=== PATIENT | female | born 1935 | race Caucasian/White ===

== ENCOUNTER 2016-10-12 13:58 | Inpatient (IN) | payer MEDICARE, MEDICAID ==
[~2016-10-12] VITALS: Ht 167.6 cm; Wt 58.6 kg
--- NOTE | 2016-10-30 13:37 | MH ---
cc: JUNIOR HERNANDEZ M.D. DATE OF ADMISSION: 10/31/2016 ADMISSION DIAGNOSIS Osteoarthritis, left hip. HISTORY OF PRESENT ILLNESS This patient is an 81-year-old female who has had long-term care for her left hip arthritis. The patient injured herself when she was gardening in 2014. She has had treatment of her low back and left hip region. The patient developed progressive groin pain. She was seen by an orthopedic surgeon in [place]. The patient had conservative care including oral medications and injections of cortisone. She now presents for total hip replacement arthroplasty. PAST MEDICAL HISTORY, SOCIAL HISTORY, FAMILY HISTORY See attached notes. PHYSICAL EXAMINATION 5 feet 6 inches, 125 pounds, BMI 20.2. HEENT: Normocephalic, atraumatic. Pupils equal, round and reactive to light and accommodation. Extraocular movements intact. NECK: Supple. CHEST: Clear. HEART: Regular rate and rhythm. ABDOMEN: Soft, nontender. Normoactive bowel sounds. MUSCULOSKELETAL: Left hip flexion 80, extension -30, internal rotation 20, external rotation 10, abduction 20, adduction 10. There is severe pain with range of motion. NEUROLOGIC: Within normal limits. IMAGING X-rays reviewed of the pelvis shows evidence of severe degenerative changes. There is significant loss of femoral heading integrity. This is either erosion of bone stock or evidence of avascular necrosis. IMPRESSION 1. Osteoarthritis left hip, severe. 2. Possible avascular necrosis, left hip. PLAN Left total hip replacement arthroplasty, direct anterior exposure. CONSENT There are risks of surgery including infection, bleeding, loss of motion, continued pain, need for further surgery, neurologic and vascular injury. The patient understands these issues and wishes to press on with surgery as outlined above. MD TALIB Pagan/DARIN /1:14 PM /1:25 PM
[2016-10-31] MEDS ORDERED: SODIUM CHLORID 0.9% 500 ML IV PRN (10:15)
[2016-10-31] MEDS ORDERED: CHLORHEXIDINE GLUCONATE 2 % 1 PACK (2 CLOTHS) TOPICAL PRN (10:15)
[2016-10-31] MEDS ORDERED: POVIDONE IODINE 7.5% SCRUB 118 ML BOTTLE TOPICAL SCH (10:15)
[2016-10-31] MEDS ORDERED: ceFAZolin 2 GM PREMIX 50 ML IV SCH (10:15)
[2016-10-31] MEDS ORDERED: METOPROLOL TARTRATE 25 MG TAB PO PRN (10:15)
[2016-10-31] MEDS ORDERED: INSULIN HUMAN REGULAR 1,000 UNITS/10 ML VIAL SQ PRN (10:15)
[2016-10-31] MEDS ORDERED: POVIDONE IODINE 5% (ANTISEPSIS KIT) 4 APPLICATIONS EACH NARE PRN (10:15)
[2016-10-31] MEDS ORDERED: VANCOMYCIN 1000 MG/NS 250 ML (for <70 kg) IV SCH ×2 (10:15)
[2016-10-31] MEDS ORDERED: LACTATED RINGER'S 1000 ML IV PRN (10:15)
[2016-10-31] MEDS ORDERED: TRANEXAMIC ACID INJ 590 MG in SODIUM CHLORIDE 0.9% INJ 100 ML IV SCH (10:30)
[2016-10-31] MEDS ORDERED: EXPAREL PERI-ARTICULAR INJECTION (TOTAL VOL. 60 ML) P-ARTICULR SCH ×2 (10:30)
[2016-10-31] MEDS ORDERED: GENTAMICIN SULFATE 80 MG/2 ML VIAL ONE (10:53)
[2016-10-31] MEDS ORDERED: SODIUM CHLOR 0.9% 250 ML INJ 250 ML ONE (10:58)
[2016-10-31] MEDS ORDERED: ACETAMINOPHEN 1000 MG/100 ML VIAL IV ONE (11:41)
[2016-10-31] MEDS ORDERED: FAMOTIDINE 20 MG/2 ML VIAL ONE (11:42)
[2016-10-31] MEDS ORDERED: PROPOFOL 200 MG/20 ML AMP IV ONE (12:00)
[2016-10-31] MEDS ORDERED: LACTATED RINGER'S 1000 ML INJ 2,000 ML IV ONE (12:00)
[2016-10-31] MEDS ORDERED: PHENYLEPH/NS 1000 MCG/10 ML SYR IV ONE (12:00)
[2016-10-31] MEDS ORDERED: ONDANSETRON HCL 4 MG/2 ML VIAL IV PUSH ONE (12:00)
[2016-10-31] MEDS ORDERED: ePHEDrine/NS 25 MG/5 ML SYR IV ONE (12:00)
[2016-10-31] MEDS: LACTATED RINGER'S 1000 ML INJ 1,000 ML IV SCH ×2 (14:57→21:26)
--- NOTE | 2016-10-31 14:58 | RADRPT ---
EXAM DATE/TIME: 10/31/2016 12:44 [facility] COMPARISON: No previous studies available for comparison. INDICATIONS : Left total hip replacement arthroplasty. MEDICAL HISTORY : None. SURGICAL HISTORY : None. ENCOUNTER: Initial ACUITY: 1 day PAIN SCORE: Non-responsive. LOCATION: Left hip FINDINGS: Patient is status post placement of a left hip prosthesis. There is good position and alignment of th e prosthesis and bony structures. The bony structures are grossly intact. Postsurgical changes are pr esent. CONCLUSION: Good position and alignment on this postoperative examination. Mohsen Linton MD on October 31, 2016 at 14:56 Board Certified Radiologist. This report was verified electronically.
[2016-10-31] MEDS ORDERED: MORPHINE SULFATE 30 MG/30 ML PCA IV SCH (15:00)
[2016-10-31] MEDS ORDERED: SODIUM CHLORIDE 0.9% FLUSH 5 ML FLUSH IVF PRN (15:00)
[2016-10-31] MEDS ORDERED: MISCELLANEOUS PHARMACY INFORMATION XX ONE (15:00)
[2016-10-31] MEDS ORDERED: MORPHINE SULFATE 8 MG/ML INJ IM PRN (15:00)
[2016-10-31] MEDS ORDERED: ACETAMINOPHEN/HYDROcodone 325 MG/7.5 MG TAB PO PRN (15:00)
[2016-10-31] MEDS ORDERED: MISCELLANEOUS NURSING INFORMATION XX PRN (15:00)
[2016-10-31] MEDS ORDERED: NALOXONE HCL 0.4 MG/ML AMP IV PRN (15:00)
--- NOTE | 2016-10-31 15:04 | PD.OP ---
cc: Bi Crouch MD Operative Report Date of Surgery: Oct 31, 2016 Preoperative Diagnosis: Osteoarthritis left hip, severe/inflammatory arthropathy Postoperative Diagnosis: Same Procedure: Left total hip replacement arthroplasty, hybrid, direct anterior exposure Surgeon: Bi Crouch Marine Farmer(s): BLAIRE Smith Operation and Findings: EBL: 500 cc INDICATION: This patient presents with significant hip pain related to severe inflammatory changes of the left hip with some evidence of avascular necrosis with subsidence.. Despite extensive conservative care this patient continues to be painful and now presents for surgical treatment. 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 In my medical opinion her skill and care was necessary for the proper management of this patient. COMPONENTS: COMPANY: [employer] CUP: [place], 52 mm, sector series, gription surface LINER: Altrx 36, neutral STEM: [place], cemented, size 5 HEAD: 36, +12, 12/14 taper PROCEDURE: This patient was brought to the operating room and anesthetized in the supine position and positioned on the fracture table with both legs held extended. The left hip and leg was scrubbed with alcohol followed by Hibiclens followed by ChloraPrep and draped sterilely. Antibiotics were given within routine time window and a timeout was done. A 4 inch incision was made starting 2 cm distal and 2 cm lateral to the anterior superior iliac spine. The fascia imani was opened longitudinally. The interval between the fascia imani and the rectus was opened down to the capsule of the hip joint. Retractors were positioned allowing good visualization of the capsule. This was opened longitudinally and flaps were created. Stay sutures were utilized. Exposure was excellent. The neck was cut at the proper location using fluoroscopy as a guide. The head was removed. Deep retractors were positioned allowing good visualization of the acetabulum. Acetabulum was deepened down to the floor starting with a proper size reamer and reaming up to 51 mm. A trial was utilized. Fluoroscopy was used to check position and confirmed satisfactory alignment. The rim was reamed with a 52 mm reamer and the final cup was positioned in approximately 20 of anteversion and 40-45 of abduction. Position was satisfactory. A single hole eliminator was positioned followed by the final liner. The lifting hook was utilized. The leg was dropped to the floor, maximally externally rotated and brought across the midline. Retractors were positioned. A box osteotome was utilized followed by progressive broaching to the proper stem size. This patient had a significant widened medullary canal. After broaching to a size 12 on the [place] system, it was felt best to proceed forward with a #5 [place] cemented stem. Trial reduction showed excellent alignment and fit. With 60 of external rotation the leg was dropped to the floor without evidence of anterior subluxation. The wound was irrigated. The canal was plugged with a #3 [place] cement restrictor. It was irrigated and dried. 2 packs of methylmethacrylate were mixed on the back table. This was injected and pressurized. The final stem was inserted and was found to be very stable. The final reduction using the final head. Stability was as previously noted. Intraoperative x-rays were taken. The wound was irrigated copiously. Hemostasis was controlled. Local anesthesia was utilized. The capsule was repaired with #2 Tycron sutures. The fascia imani was repaired with running 0 PDS on a loop. Subcutaneous tissue was approximated with 2-0 Vicryl and skin with running intradermal 3-0 Vicryl followed by Steri-Strips. A sterile dressing was applied. The patient was awakened and taken to the recovery room in satisfactory condition. FINDINGS: There was severe erosive changes of the acetabulum. Final fit was excellent. Stability was excellent. Because of the asymmetry of the medullary canal to the proximal femur, it was best to proceed forward with a cemented stem location was appreciated. Bi Crouch MD Oct 31, 2016 15:04
[2016-10-31] MEDS ORDERED: HYDR-3580 PO (15:05)
[2016-10-31] MEDS ORDERED: XARE10TA PO (15:05)
[2016-10-31] MEDS ORDERED: Post-op Orders (for Pharmacy) MISC XX ONE (15:29)
[2016-10-31] MEDS ORDERED: fentaNYL CITRATE 250 MCG/5 ML AMP ONE (15:38)
[2016-10-31] MEDS ORDERED: *morphine SULFATE 8 MG/ML PERIprocedure ONLY ONE (16:07)
[2016-10-31] MEDS ORDERED: DO NOT ADM ANY ANTICOAGULANT DRUGS PRN (16:15)
[2016-10-31 20:00] VITALS: BP 108/53; PULSE 67; RESP 18; TEMP 98.7; O2SAT 100
[2016-10-31] MEDS: SODIUM CHLORIDE 0.9% FLUSH 5 ML FLUSH IVF SCH (21:00)
[2016-10-31] MEDS: MAGNESIUM HYDROXIDE SUSP 30 ML CUP PO SCH (21:26)
[2016-10-31] MEDS: SENNOSIDES 8.6 MG TAB PO SCH (21:26)
[2016-10-31] MEDS: PCA - TOTAL MG MORPHINE DELIVERED PER SHIFT SCH (21:27)
[2016-11-01] VITALS (7 sets, daily range): BP systolic 104–146; BP diastolic 53–69; PULSE 69–99; RESP 17–18; TEMP 96.2–98.6; O2SAT 94–100
[2016-11-01] MEDS: PCA - TOTAL MG MORPHINE DELIVERED PER SHIFT SCH ×2 (05:31→14:00)
[2016-11-01 08:13] LABS: HEMATOCRIT 28.2 % (35.0-46.0); REVIEW FLAG FINAL
[2016-11-01] MEDS: MAGNESIUM HYDROXIDE SUSP 30 ML CUP PO SCH ×2 (09:00→21:14)
[2016-11-01] MEDS: SODIUM CHLORIDE 0.9% FLUSH 5 ML FLUSH IVF SCH ×2 (09:00→21:00)
[2016-11-01] MEDS ORDERED: WALKER WHEELS/F1 MIS (11:09)
[2016-11-01] MEDS ORDERED: COMMODE 3-IN-11 MIS (11:10)
--- NOTE | 2016-11-01 11:13 | HHI.DS ---
Discharge Summary Admission Date Oct 31, 2016 at 09:24 Discharge Date: Nov 03, 2016 Admitting Diagnosis see below Diagnosis: (1) Osteoarthritis of left hip Diagnosis: Principal (2) Avascular necrosis of bone of left hip Diagnosis: Principal Procedures Left total hip arthroplasty, Direct anterior approach Brief History This is a 81 year old female patient with a 2 year history of left hip pain. She started to struggle with daily activities so she sought out medical treatment. Imaging studies showed mild to moderate arthritis. She began physical therapy and continued off and on for 6 months. Her function then began to decline rapidly and she began using a cane/walker. Imaging studies were repeated this year showed advanced arthritis with collapse of the femoral head indicating AVN. Surgical treatment was recommended in the form of left total hip arthroplasty and she elected to move forward. CBC/BMP: 11/01/16 0654 Significant Findings Laboratory Tests Test 10/31/16 11/01/16 10:26 06:54 Antibody Screen POSITIVE Hemoglobin 9.7 GM/DL (11.6-15.3) Hematocrit 28.2 % (35.0-46.0) Hospital Course Surgical treatment was performed on the day of admission without complication. She recovered well in PACU and was transferred to the orthopaedic floor. Pain was controlled with IV and oral medications. DVT prophylaxis was initiated pod# 1 with xarelto. She was compliant with physical therapy and all anterior hip precautions. AFter 3 days she was found to be stable and discharged to a long term facility with instruction to continue therapy and anterior hip precautions. She was also instructed to continue her xarelto for 25 days and to continue a high fiber diet for 3-5 days. Pt Condition on Discharge: Stable Discharge Disposition: Discharge to SNF Discharge Instructions Diet Instructions: As Tolerated, No Restrictions, High Fiber Diet Activities You Can Perform: Weight Bearing as Micah Activities to Avoid: Strenuous Activity Additional Activity Instruc.: Anterior tadeo precautions New Medications: Commode 3-in-1 (Commode 3-in-1) 1 Mis Mis 1 EA .ROUTE DIRECTED #1 Ref 0 EA Walker with Front Wheels (Walker with Front Wheels) 1 Mis Mis 1 EA .ROUTE DIRECTED #1 Ref 0 EA Hydrocodone-Acetaminophen (Hydrocodone-Acetaminophen) 7.5-325 mg Tab 1 TAB PO Q4H PRN PAIN LESS THAN 5 ON SCALE #50 TAB Rivaroxaban (Xarelto) 10 Mg Tab 10 MG PO Q24H Prevent Blood Clot #25 TAB Leila Day Nov 01, 2016 11:13
--- NOTE | 2016-11-01 13:27 | PD.ORT.PN ---
Subjective Subjective Remarks She was having left lateral hip pain and spasms but that is doing much better this am. No new radiating leg pain below knee. No difficulty breathing or wet cough. She was very pleased with her spinal. Questions about surgery. No CP or SOB. Objective Vitals Vital Signs Date Time Temp Pulse Resp B/P Pulse Ox O2 Delivery O2 Flow Rate FiO2 11/01/16 12:00 96.2 99 18 137/66 100 11/01/16 08:00 98.5 73 17 120/63 96 11/01/16 07:50 96 Room Air 11/01/16 07:41 94 21 11/01/16 04:00 97.0 79 18 130/63 99 11/01/16 00:32 21 11/01/16 00:00 98.6 69 18 104/53 100 10/31/16 20:00 98.7 67 18 108/53 100 10/31/16 18:50 Nasal Cannula 2.00 10/31/16 17:00 58 14 135/65 100 Nasal Cannula 2 10/31/16 16:45 57 14 143/73 100 Nasal Cannula 2 10/31/16 16:30 62 13 130/68 100 Nasal Cannula 2 10/31/16 16:15 55 14 128/61 100 Nasal Cannula 2 10/31/16 16:00 55 14 116/58 100 Nasal Cannula 2 10/31/16 15:45 53 16 104/58 98 Nasal Cannula 2 10/31/16 15:30 97.5 68 17 158/65 98 Nasal Cannula 2 I/O 10/31/16 10/31/16 10/31/16 11/01/16 11/01/16 11/01/16 07:00 15:00 23:00 07:00 15:00 23:00 Intake Total 4404 ml 1378 ml Output Total 2275 ml 350 ml Balance 2129 ml 1028 ml Intake Oral 720 ml 720 ml IV Total 484 ml 658 ml Other 3200 ml Output Urine Total 1775 ml 350 ml Estimated Blood Loss 500 ml Result Diagram: 11/01/16 0654 Procedures Left total hip arthroplasty, Direct anterior approach Objective Remarks Sitting up in chair No acute distress VSS LLE Anterior left hip dressing c/d/i, no significant drainage, mild swelling, no erythema +motor at, +sens, +nvi neg homans, thigh and calf supple Assessment & Plan Ortho Post Op Day #: 1 Problem List: (1) Osteoarthritis of left hip (2) Avascular necrosis of bone of left hip Assessment and Plan pod#1 s/p L ANISHA, anterior 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 PT - WBAT LLE. Anterior ANISHA precautions. Hold dressing changes unless saturated. Xarelto 10mg qd for 25 days. D/C planning, like SNF sunday. She only has grandson in town. Leila Day Nov 01, 2016 13:27
[2016-11-01] MEDS: RIVAROXABAN 10 MG TAB PO SCH (15:22)
[2016-11-01] MEDS: ACETAMINOPHEN/HYDROcodone 325 MG/7.5 MG TAB PO PRN (15:22)
[2016-11-01] MEDS: LACTATED RINGER'S 1000 ML INJ 1,000 ML IV SCH (15:57)
[2016-11-01] MEDS: LORATADINE 10 MG TAB PO SCH (21:14)
[2016-11-01] MEDS: SENNOSIDES 8.6 MG TAB PO SCH (21:14)
[2016-11-02] VITALS: BP 121/57; PULSE 79; RESP 18; TEMP 99.2; O2SAT 96
[2016-11-02] MEDS: LACTATED RINGER'S 1000 ML INJ 1,000 ML IV SCH ×2 (04:27→16:57)
[2016-11-02 08:00] VITALS: BP 132/74; PULSE 84; RESP 17; TEMP 98.7; O2SAT 94
--- NOTE | 2016-11-02 08:35 | HHI.DCPOC ---
Discharge Care Plan Diagnosis: (1) Osteoarthritis of left hip (2) Avascular necrosis of bone of left hip Your Health Problems Are: Incision/Drains Inflammation Goals to Promote Your Health * To prevent worsening of your condition and complications * To maintain your health at the optimal level Directions to Meet Your Goals Take your medications as prescribed Follow your dietary instruction Follow activity as directed Keep your appointments as scheduled Take your immunizations and boosters as scheduled If your symptoms worsen call your PCP, if no PCP go to Urgent Care Center or Emergency Room Smoking is Dangerous to Your Health. Avoid second hand smoke Call the 24-hour hour crisis hotline for domestic abuse at Leila Day Nov 02, 2016 08:35
--- NOTE | 2016-11-02 08:39 | PD.ORT.PN ---
Subjective Subjective Remarks Her left lateral hip pain is improving. She still did not sleep well last night. She is doing 'better' this morning. No new radiating leg pain below knee. No difficulty breathing or wet cough. Questions about discharge - she is thinking of going to rehab as she only has a grandson who is visiting for 10 days to help her. Objective Vitals Vital Signs Date Time Temp Pulse Resp B/P Pulse Ox O2 Delivery O2 Flow Rate FiO2 11/02/16 08:00 98.7 84 17 132/74 94 11/02/16 00:00 99.2 79 18 121/57 96 11/01/16 21:28 21 11/01/16 20:00 98.5 74 18 116/59 97 11/01/16 20:00 97 Room Air 11/01/16 16:00 96.5 74 18 146/69 100 11/01/16 14:00 14 11/01/16 12:00 96.2 99 18 137/66 100 I/O 11/01/16 11/01/16 11/01/16 11/02/16 11/02/16 11/02/16 07:00 15:00 23:00 07:00 15:00 23:00 Intake Total 1378 ml 1233 ml 480 ml 240 ml Output Total 350 ml 300 ml Balance 1028 ml 933 ml 480 ml 240 ml Intake Oral 720 ml 420 ml 480 ml 240 ml IV Total 658 ml 813 ml Output Urine Total 350 ml 300 ml # Voids 0 2 2 # Bowel Movements 0 0 0 Result Diagram: 11/01/16 0654 Procedures Left total hip arthroplasty, Direct anterior approach Objective Remarks Laying in bed, No acute distress VSS - O2 97 LLE Anterior left hip dressing c/d/i, no significant drainage, mild swelling, no erythema +motor at, +sens, +nvi neg homans, thigh and calf supple Assessment & Plan Ortho Post Op Day #: 2 Problem List: (1) Osteoarthritis of left hip (2) Avascular necrosis of bone of left hip Assessment and Plan pod#2 s/p L ANISHA, anterior Doing well. Less pain today. PO pain meds as needed. PT - WBAT LLE. Anterior ANISHA precautions. Hold dressing changes unless saturated. Xarelto 10mg qd for 25 days. D/C planning, like SNF tomorrow. She only has grandson who is visiting for 10 days or so. [id number] signed. Leila Day Nov 02, 2016 08:39
[2016-11-02] MEDS: SODIUM CHLORIDE 0.9% FLUSH 5 ML FLUSH IVF SCH ×2 (09:00→22:15)
[2016-11-02] MEDS: MAGNESIUM HYDROXIDE SUSP 30 ML CUP PO SCH ×2 (09:13→22:15)
[2016-11-02] MEDS: ACETAMINOPHEN/HYDROcodone 325 MG/7.5 MG TAB PO PRN (09:26)
[2016-11-02 11:26] VITALS: O2SAT 97
[2016-11-02 12:00] VITALS: BP 109/57; PULSE 74; RESP 17; TEMP 95.7; O2SAT 97
[2016-11-02] MEDS: RIVAROXABAN 10 MG TAB PO SCH (15:56)
[2016-11-02 16:00] VITALS: BP 125/62; PULSE 80; RESP 17; TEMP 96.3; O2SAT 98
[2016-11-02 20:00] VITALS: BP 138/58; PULSE 84; RESP 18; TEMP 99.1; O2SAT 100
[2016-11-02] MEDS: SENNOSIDES 8.6 MG TAB PO SCH (22:14)
[2016-11-02] MEDS: LORATADINE 10 MG TAB PO SCH (22:14)
[2016-11-02] MEDS ORDERED: BISACODYL 10 MG SUPP RECTAL PRN (22:15)
[2016-11-03] VITALS: BP 113/57; PULSE 78; RESP 18; TEMP 99; O2SAT 98
[2016-11-03] MEDS: LACTATED RINGER'S 1000 ML INJ 1,000 ML IV SCH (04:18)
[2016-11-03 07:51] LABS: HEMATOCRIT 27.6 % (35.0-46.0); REVIEW FLAG FINAL
--- NOTE | 2016-11-03 07:54 | PD.ORT.PN ---
Subjective Subjective Remarks No complaints. Pain decreasing Objective Vitals Vital Signs Date Time Temp Pulse Resp B/P Pulse Ox O2 Delivery O2 Flow Rate FiO2 11/03/16 00:00 99.0 78 18 113/57 98 11/02/16 21:05 Room Air 11/02/16 20:00 99.1 84 18 138/58 100 11/02/16 16:00 96.3 80 17 125/62 98 11/02/16 12:00 95.7 74 17 109/57 97 11/02/16 11:26 97 21 11/02/16 08:00 98.7 84 17 132/74 94 I/O 11/02/16 11/02/16 11/02/16 11/03/16 11/03/16 11/03/16 07:00 15:00 23:00 07:00 15:00 23:00 Intake Total 240 ml 800 ml 480 ml 480 ml Output Total 350 ml Balance 240 ml 800 ml 480 ml 130 ml Intake Oral 240 ml 800 ml 480 ml 480 ml Output Urine Total 350 ml Bladder Scan Volume Amount 325 ml # Voids 2 1 2 1 # Bowel Movements 0 0 0 3 Result Diagram: 11/03/1617 Procedures Left total hip arthroplasty, Direct anterior approach Objective Remarks Laying in bed, No acute distress VSS - O2 97 LLE Anterior left hip dressing c/d/i, no significant drainage, mild swelling, no erythema +motor at, +sens, +nvi neg homans, thigh and calf supple Assessment & Plan Ortho Post Op Day #: 3 Problem List: (1) Osteoarthritis of left hip (2) Avascular necrosis of bone of left hip Assessment and Plan pod#3 s/p L ANISHA, anterior Doing well. Less pain today. PO pain meds as needed. PT - WBAT LLE. Anterior ANISHA precautions. Hold dressing changes unless saturated. Xarelto 10mg qd for 25 days. D/C planning, SNF today. She only has grandson who is visiting for 10 days or so. [id number] signed. Bi Crouch MD Nov 03, 2016 07:54
[2016-11-03 08:00] VITALS: BP 138/63; PULSE 94; RESP 17; TEMP 99.9; O2SAT 94
[2016-11-03] MEDS: SODIUM CHLORIDE 0.9% FLUSH 5 ML FLUSH IVF SCH (09:00)
[2016-11-03] MEDS: MAGNESIUM HYDROXIDE SUSP 30 ML CUP PO SCH (10:08)
[2016-11-03 12:00] VITALS: BP 105/52; PULSE 82; RESP 18; TEMP 98.4; O2SAT 95
[2016-11-03] MEDS: RIVAROXABAN 10 MG TAB PO SCH (14:12)
== END 2016-11-03 14:45 | DRG 470 ==
LOC: HSDI 10-31 09:24 → N06A 10-31 17:25
PROVIDERS: ADMIT Orthopaedic Surgery Orthopaedic Surgery of the Spine; ATTEND Orthopaedic Surgery Orthopaedic Surgery of the Spine
PROC: 0SRB019 Replacement of Left Hip Joint with Metal Synthetic Substitute, Cemented, Open Approach (ICD-10-PCS; principal; 2016-10-31 12:08)
DX: M16.12 Unilateral primary osteoarthritis, left hip (principal); M87.9 Osteonecrosis, unspecified
CPT/HCPCS: 73502; 76000; 85014; 85018; 86077; 86850; 86870; 86900; 86901; 86920; 86922; 94150; C1776; C9290; J0131; J0690; J1580; J2270; J2370; J2405; J3010; J3370; J7050; J7120

== ENCOUNTER → 2016-10-13 | Outpatient (CLI) | payer MEDICARE, MEDICAID ==
[2016-10-13 08:56] LABS: AUTOMATED NEUTROPHIL # 2.2 TH/MM3 (1.8-7.7); BASOPHIL % 0.6 % (0.0-2.0); EOSINOPHIL # 0.2 TH/MM3 (0-0.4); EOSINOPHIL % 3.7 % (0.0-4.0); HEMATOCRIT 39.5 % (35.0-46.0); HEMO FLAGS DIFF FINAL; LYMPH % 30.7 % (9.0-44.0); LYMPHOCYTE # 1.2 TH/MM3 (1.0-4.8); MEAN CORPUSCULAR HEMOGLOBIN 28.4 PG (27.0-34.0); MONO % 9.8 % (0.0-8.0); NEUT % 55.2 % (16.0-70.0); PLATELET COUNT 210 TH/MM3 (150-450); RED BLOOD COUNT 4.59 MIL/MM3 (4.00-5.30); RED CELL DISTRIBUTION WIDTH 14.5 % (11.6-17.2)
[2016-10-13 09:05] LABS: APTT (PATIENT) 32.4 SEC (24.3-30.1); PROTHROMBIN TIME - PATIENT 11.1 SEC (9.8-11.6)
[2016-10-13 09:25] LABS: BICARBONATE 28.4 MEQ/L (21.0-32.0); POTASSIUM 3.9 MEQ/L (3.5-5.1)
[2016-10-13 09:52] LABS: BLOOD, URINE NEG (NEG); COMMENT (UR) CATH-CULT NOT IND; CULTURE IF INDICATED CATH CULTURE NOT IND; GLUCOSE,URINE NEG (NEG); KETONE, URINE NEG (NEG); NITRITE,URINE NEG (NEG); URINE COLOR YELLOW (YELLW/STRAW)
--- NOTE | 2016-10-13 14:48 | EKG ---
Date Performed: 10/13/2016 Time Performed: 08:41:04 PTAGE: 81 years EKG: Sinus rhythm WITH FIRST DEGREE AV BLOCK INCOMPLETE RIGHT BUNDLE BRANCH BLOCK ABNORMAL ECG NO PREVIOUS TRACING DOCTOR: Chico Simons Interpretating Date/Time 10/13/2016 14:46:08
== END ==
LOC: CPRE 08:08
PROVIDERS: ATTEND Orthopaedic Surgery Orthopaedic Surgery of the Spine
DX: Z01.812 Encounter for preprocedural laboratory examination (principal); Z01.810 Encounter for preprocedural cardiovascular examination; I44.0 Atrioventricular block, first degree; I45.10 Unspecified right bundle-branch block
CPT/HCPCS: 36415; 80048; 81001; 85025; 85610; 85730; 93005